=== PATIENT | male | born 1940 | race Hispanic/Latino ===

== ENCOUNTER 2018-10-16 18:53 | Emergency (ER) | payer MEDICARE ==
[~2018-10-16] VITALS: Ht 172.7 cm; Wt 78.0 kg
[2018-10-16] MEDS ORDERED: DEXAMETHASONE 10MG/ML PF INJ ONE (19:27)
[2018-10-16] MEDS ORDERED: DEXAMETHASONE SOD PHOS 10 MG/1 ML VIAL IM ONE (19:30)
[2018-10-16] MEDS ORDERED: FAMOTIDINE 20 MG TAB PO NR (19:30)
[2018-10-16] MEDS ORDERED: DIPHENHYDRAMINE HCL INJ 50 MG/ML VIAL IM ONE (19:30)
== END 2018-10-16 19:45 | disposition home or self-care (01) ==
LOC: FSED 18:53
DX: R21 Rash and other nonspecific skin eruption (principal); I10 Essential (primary) hypertension
CPT/HCPCS: 99283; J1100; J1200

== ENCOUNTER 2021-09-12 09:48 | Observation (INO) | payer MEDICARE ==
[~2021-09-12] VITALS: Ht 172.7 cm; Wt 78.0 kg
[2021-09-12] MEDS ORDERED: ACETAMINOPHEN 325 MG TAB PO STA (09:56)
[2021-09-12] MEDS ORDERED: SODIUM CHLORIDE 0.9% 1000ML 1,000 ML IV STA ×2 (10:25→11:34)
[2021-09-12 10:32] LABS: BASOPHILS % 0.3 % (0.0-1.0); HEMATOCRIT 49.2 % (38.2-49.6); HEMOGLOBIN 16.5 g/dL (14.0-18.0); LYMPHOCYTES # (AUTO) 1.1 (1.0-3.2); LYMPHOCYTES % 17.8 % (18.0-39.1); MEAN CORPUSCULAR HEMOGLOBIN 31.1 pg (28-32); MEAN CORPUSCULAR HGB CONC 33.5 g/dL (31-35); MEAN CORPUSCULAR VOLUME 92.7 fL (81-99); MONOCYTES # (AUTO) 0.8 (0.2-0.8); MONOCYTES % 13.4 % (4.4-11.3); NEUTROPHILS % 67.8 % (38.7-80.0); PLATELET COUNT 195 x10e3/uL (140-360); RED BLOOD COUNT 5.31 x10e6/uL (4.3-5.7); RED CELL DISTRIBUTION WIDTH 11.8 % (11.7-14.4)
[2021-09-12 10:56] LABS: B-TYPE NATRIURETIC PEPTIDE2 40.5 pg/mL (0-100)
[2021-09-12 10:57] LABS: INR 0.99; PARTIAL THROMBOPLASTIN TIME 27.1 seconds (23.8-35.5)
[2021-09-12] MEDS ORDERED: Vancomycin IV 1 GM in SODIUM CHLORIDE 0.9% 250ML 250 ML IV ONE (11:00)
[2021-09-12 11:07] LABS: ALANINE AMINOTRANSFERASE 50 IU/L (0-55); ALBUMIN 3.7 g/dL (3.5-5.0); ALBUMIN/GLOBULIN RATIO 1.1 (0.8-2.0); ALKALINE PHOSPHATASE 64 IU/L (40-150); ANION GAP 13.5 mmol/L (8-16); BLOOD UREA NITROGEN 13 mg/dL (7-26); BUN/CREATININE RATIO 10 (6-25); CALCIUM 8.4 mg/dL (8.4-10.2); CARBON DIOXIDE 23 mmol/L (22-29); CHLORIDE 104 mmol/L (98-107); CREATINE KINASE 40 IU/L (30-200); CREATININE, SERUM 1.29 mg/dL (0.72-1.25); EST GLOMERULAR FILTRATION RATE 53 ML/MIN (60-); GLUCOSE 169 mg/dL (74-118); POTASSIUM 3.5 mmol/L (3.5-5.1); SODIUM 137 mmol/L (136-145)
[2021-09-12 11:25] LABS: CLARITY,URINE CLEAR (CLEAR); COLOR,URINE YELLOW (YELLOW); KETONES,URINE TRACE (NEGATIVE); LEUKOCYTE ESTERASE ,URINE NEGATIVE (NEGATIVE); NITRITE,URINE NEGATIVE (NEGATIVE); PROTEIN,URINE DIPSTICK TRACE (NEGATIVE); URINE UROBILINOGEN 1 mg/dL (0.2 - 1)
[2021-09-12 11:26] LABS: BACTERIA,URINE RARE /HPF; EPITHELIAL CELLS,URINE FEW /LPF; RBC,URINE 0-5 /HPF (0-5); WBC,URINE (MAN) 0-5 /HPF (0-5)
[2021-09-12] MEDS ORDERED: IOPAMIDOL 370 MG/ML 100 ML INFUS..BTL INJ ONE (12:13)
[2021-09-12] MEDS ORDERED: ACETAMINOPHEN 325 MG TAB PO PRN (14:15)
[2021-09-12] MEDS ORDERED: ONDANSETRON HCL INJ 2MG/ML 2ML 2 MG/ML VIAL IV PRN (14:15)
[2021-09-12] MEDS ORDERED: CLONIDINE HCL 0.1 MG TAB PO PRN (14:15)
[2021-09-12] MEDS: SODIUM CHLORIDE 0.9% 1000ML 1,000 ML IV SCH ×3 (14:21→23:05)
[2021-09-12] MEDS ORDERED: ALBUTEROL SULFATE HFA 8GM INHALATION AEROSOL INH PRN (15:15)
[2021-09-12] MEDS ORDERED: ENOXAPARIN SOD INJ 40 MG/0.4 ML SYR SC SCH (19:45)
[2021-09-12 23:30] VITALS: BP 133/85
[2021-09-12 23:40] VITALS: BP 133/85
[2021-09-13] MEDS ORDERED: GLIPIZIDE5 MG PO (00:12)
[2021-09-13] MEDS ORDERED: AMLODIPINE BESYL5 MG PO (00:12)
[2021-09-13 04:00] VITALS: BP 140/81
[2021-09-13 05:25] LABS: BASOPHILS % 0.2 % (0.0-1.0); EOSINOPHILS % 0.5 % (0.0-6.0); HEMATOCRIT 44.5 % (38.2-49.6); HEMOGLOBIN 15.1 g/dL (14.0-18.0); LYMPHOCYTES # (AUTO) 1.3 (1.0-3.2); MEAN CORPUSCULAR HEMOGLOBIN 30.9 pg (28-32); MEAN CORPUSCULAR HGB CONC 33.9 g/dL (31-35); MEAN CORPUSCULAR VOLUME 91.2 fL (81-99); MONOCYTES # (AUTO) 0.6 (0.2-0.8); MONOCYTES % 14.4 % (4.4-11.3); NEUTROPHILS # (AUTO) 2.1 (2.1-6.9); NEUTROPHILS % 52.4 % (38.7-80.0); PLATELET COUNT 159 x10e3/uL (140-360); RED BLOOD COUNT 4.88 x10e6/uL (4.3-5.7); RED CELL DISTRIBUTION WIDTH 11.9 % (11.7-14.4)
[2021-09-13 05:45] LABS: ANION GAP 11.3 mmol/L (8-16); CREATININE, SERUM 0.87 mg/dL (0.72-1.25); POTASSIUM 3.3 mmol/L (3.5-5.1)
[2021-09-13] MEDS: SODIUM CHLORIDE 0.9% 1000ML 1,000 ML IV SCH ×2 (06:30→14:45)
[2021-09-13 08:48] VITALS: BP 149/84
[2021-09-13 09:21] VITALS: BP 149/84
[2021-09-13 12:28] VITALS: BP 140/91
[2021-09-13] MEDS ORDERED: LACTOBACILLUS ACIDOPHILUS CAPSULE PO SCH ×2 (12:30→17:00)
[2021-09-13] MEDS ORDERED: POTASSIUM CHLORIDE 20 MEQ TAB CR PO ONE (13:00)
[2021-09-13] MEDS ORDERED: ONDANSETRON HCL 4 MG ORAL DISINTEGRATING TAB PO PRN (14:30)
[2021-09-13 16:17] VITALS: BP 139/81
== END 2021-09-13 16:40 | disposition home or self-care (01) ==
LOC: ER 10:01 → ERHOLD 12:48 → MED/SURG2 22:39
PROVIDERS: ADMIT Internal Medicine; ATTEND Internal Medicine
DX: U07.1 COVID-19 (principal); G93.41 Metabolic encephalopathy; E86.0 Dehydration; R53.1 Weakness; I10 Essential (primary) hypertension; E87.2 Acidosis; N28.9 Disorder of kidney and ureter, unspecified; N17.9 Acute kidney failure, unspecified
CPT/HCPCS: 36415; 70450; 71260; 74177; 80048; 80053; 81001; 82550; 82553; 83036; 83605; 83880; 84484; 85025; 85610; 85730; 87040; 87086; 93005; 94799; 99284; G0378; J0696; J1650; J2543; J3370; J7030; J7050; Q9967; U0002

== ENCOUNTER 2021-09-20 09:22 | Emergency (ER) | payer MEDICARE ==
[~2021-09-20] VITALS: Ht 172.7 cm; Wt 78.0 kg
[~2021-09-20 09:22] MED LIST: AMLODIPINE BESYL5 MG PO; GLIPIZIDE5 MG PO
[2021-09-20 09:52] LABS: BASOPHILS % 0.2 % (0.0-1.0); EOSINOPHILS # (AUTO) 0.1 (0.0-0.4); EOSINOPHILS % 2.1 % (0.0-6.0); HEMATOCRIT 48.6 % (38.2-49.6); HEMOGLOBIN 16.7 g/dL (14.0-18.0); LYMPHOCYTES # (AUTO) 1.9 (1.0-3.2); MEAN CORPUSCULAR HEMOGLOBIN 31.1 pg (28-32); MEAN CORPUSCULAR HGB CONC 34.4 g/dL (31-35); MEAN CORPUSCULAR VOLUME 90.5 fL (81-99); MONOCYTES # (AUTO) 0.6 (0.2-0.8); MONOCYTES % 8.8 % (4.4-11.3); NEUTROPHILS # (AUTO) 3.7 (2.1-6.9); NEUTROPHILS % 58.3 % (38.7-80.0); PLATELET COUNT 277 x10e3/uL (140-360); RED BLOOD COUNT 5.37 x10e6/uL (4.3-5.7); RED CELL DISTRIBUTION WIDTH 11.7 % (11.7-14.4)
[2021-09-20 10:07] LABS: CLARITY,URINE CLEAR (CLEAR); COLOR,URINE YELLOW (YELLOW); KETONES,URINE NEGATIVE (NEGATIVE); LEUKOCYTE ESTERASE ,URINE NEGATIVE (NEGATIVE); NITRITE,URINE NEGATIVE (NEGATIVE); PROTEIN,URINE DIPSTICK NEGATIVE (NEGATIVE)
[2021-09-20 10:08] LABS: BACTERIA,URINE FEW /HPF; EPITHELIAL CELLS,URINE FEW /LPF; URINE UROBILINOGEN 0.2 mg/dL (0.2 - 1); WBC,URINE (MAN) 0-5 /HPF (0-5)
[2021-09-20 10:17] LABS: ALBUMIN 3.6 g/dL (3.5-5.0); ANION GAP 12.9 mmol/L (8-16); CALCIUM 8.6 mg/dL (8.4-10.2); CREATININE, SERUM 1.12 mg/dL (0.72-1.25); POTASSIUM 3.9 mmol/L (3.5-5.1)
[2021-09-20 10:27] LABS: INR 0.97; PARTIAL THROMBOPLASTIN TIME 27.1 seconds (23.8-35.5); PROTHROMBIN TIME 13.8 seconds (11.9-14.5)
== END 2021-09-20 11:01 | disposition home or self-care (01) ==
LOC: ER 09:42
DX: H53.9 Unspecified visual disturbance (principal); I10 Essential (primary) hypertension; H91.93 Unspecified hearing loss, bilateral; Z86.16 Personal history of COVID-19
CPT/HCPCS: 36415; 70450; 71045; 80053; 81001; 84484; 85025; 85610; 85730; 99284; U0002

== ENCOUNTER 2024-06-10 13:28 | Emergency (ER) | payer MEDICARE ==
[~2024-06-10] VITALS: Ht 170.2 cm; Wt 80.7 kg
[2024-06-10 13:40] VITALS: TEMP 98.1
[2024-06-10] MEDS: LACTATED RINGER'S 500 ML IV ONE (14:06)
[2024-06-10 14:13] LABS: BASOPHILS % 0.3 % (0.0-1.0); EOSINOPHILS # (AUTO) 0.1 (0.0-0.4); EOSINOPHILS % 1.3 % (0.0-6.0); HEMATOCRIT 44.2 % (38.2-49.6); HEMOGLOBIN 15.8 g/dL (14.0-18.0); LYMPHOCYTES # (AUTO) 2.1 (1.0-3.2); LYMPHOCYTES % 26.6 % (18.0-39.1); MEAN CORPUSCULAR HEMOGLOBIN 30.6 pg (28-32); MEAN CORPUSCULAR HGB CONC 35.7 g/dL (31-35); MEAN CORPUSCULAR VOLUME 85.7 fL (81-99); MONOCYTES % 12.6 % (4.4-11.3); NEUTROPHILS # (AUTO) 4.5 (2.1-6.9); NEUTROPHILS % 58.7 % (38.7-80.0); PLATELET COUNT 210 x10e3/uL (140-360); RED BLOOD COUNT 5.16 x10e6/uL (4.3-5.7); RED CELL DISTRIBUTION WIDTH 11.8 % (11.7-14.4)
[2024-06-10 14:45] LABS: ANION GAP 17.5 mmol/L (8-16); CALCIUM 9.3 mg/dL (8.4-10.2); CREATININE, SERUM 1.07 mg/dL (0.72-1.25); POTASSIUM 3.5 mmol/L (3.5-5.1)
[2024-06-10 15:00] VITALS: PULSE 95; RESP 20; O2SAT 93
== END 2024-06-10 15:56 | disposition home or self-care (01) ==
LOC: ER 13:43
DX: R53.1 Weakness (principal); E11.65 Type 2 diabetes mellitus with hyperglycemia; I10 Essential (primary) hypertension; H90.3 Sensorineural hearing loss, bilateral
CPT/HCPCS: 36415; 80048; 85025; 99283; J7120

== ENCOUNTER 2024-06-29 18:38 | Observation (INO) | payer MEDICARE ==
[~2024-06-29] VITALS: Ht 167.6 cm; Wt 82.6 kg
[2024-06-29 19:34] VITALS: PULSE 104; RESP 18; TEMP 98
[2024-06-29] MEDS ORDERED: SODIUM CHLORIDE FLUSH 10 ML SYR INJ PRN (20:30)
[2024-06-29] MEDS: SODIUM CHLORIDE 0.9% 1000ML 1,000 ML IV SCH (20:30)
[2024-06-29 22:05] VITALS: BP 131/91; PULSE 97; RESP 18; TEMP 99; O2SAT 97
[2024-06-30] MEDS ORDERED: POTASSIUM CHLORIDE 20 MEQ TAB CR PO PRN (00:30)
[2024-06-30] MEDS ORDERED: ACETAMINOPHEN 325 MG TAB PO PRN (00:30)
[2024-06-30] MEDS ORDERED: ALBUTEROL/IPRATROPIUM 3 ML NEB NEB PRN (00:30)
[2024-06-30] MEDS ORDERED: DOCUSATE SODIUM 100 MG CAP PO PRN (00:30)
[2024-06-30] MEDS ORDERED: ONDANSETRON HCL INJ 2MG/ML 2ML 2 MG/ML VIAL IV PRN (00:30)
[2024-06-30] MEDS ORDERED: LIDOCAINE 4% PATCH TP PRN (00:30)
[2024-06-30] MEDS ORDERED: MELATONIN 5 MG TABLET PO PRN (00:30)
[2024-06-30] MEDS ORDERED: SIMETHICONE 80 MG CHEW PO PRN (00:30)
[2024-06-30] MEDS ORDERED: DIPHENHYDRAMINE HCL 25 MG CAP PO PRN (00:30)
[2024-06-30] MEDS ORDERED: BENZONATATE 100 MG CAP PO PRN (00:30)
[2024-06-30] MEDS ORDERED: DEXTROSE 50% SYRINGE 50 ML IV PRN ×2 (00:30)
[2024-06-30] MEDS ORDERED: METFORMIN HCL500 MG PO (01:00)
[2024-06-30] MEDS ORDERED: FLOMAX0.4 MG PO (01:00)
[2024-06-30] MEDS ORDERED: HYDROCHLOROTHIA25 MG PO (01:00)
[2024-06-30] MEDS ORDERED: ASPIRIN81 MG PO (01:00)
[2024-06-30 05:08] VITALS: BP 118/88; PULSE 91; RESP 18; TEMP 97.9; O2SAT 95
[2024-06-30 05:37] LABS: ANION GAP 14.4 mmol/L (8-16); CALCIUM 8.4 mg/dL (8.4-10.2); CHOL/HDL RATIO 5.2 (3.9-4.7); CREATININE, SERUM 0.89 mg/dL (0.72-1.25); MAGNESIUM 1.7 MG/DL (1.3-2.1)
[2024-06-30 05:45] LABS: POTASSIUM 3.4 mmol/L (3.5-5.1)
[2024-06-30 05:47] LABS: TROPONIN I 0.077 ng/mL (0-0.300)
[2024-06-30 06:00] LABS: THYROID STIMULATING HORMONE 2.139 uIU/mL (0.350-4.940)
[2024-06-30 07:30] VITALS: BP 118/88; PULSE 91; RESP 18; TEMP 97.9; O2SAT 95
[2024-06-30 07:49] LABS: BASOPHILS % 0.6 % (0.0-1.0); EOSINOPHILS # (AUTO) 0.1 (0.0-0.4); EOSINOPHILS % 1.3 % (0.0-6.0); HEMATOCRIT 43.2 % (38.2-49.6); HEMOGLOBIN 15.1 g/dL (14.0-18.0); LYMPHOCYTES % 21.1 % (18.0-39.1); MEAN CORPUSCULAR HEMOGLOBIN 30.8 pg (28-32); MEAN CORPUSCULAR VOLUME 88.2 fL (81-99); MONOCYTES # (AUTO) 0.7 (0.2-0.8); MONOCYTES % 14.7 % (4.4-11.3); NEUTROPHILS # (AUTO) 2.9 (2.1-6.9); NEUTROPHILS % 61.7 % (38.7-80.0); PLATELET COUNT 190 x10e3/uL (140-360); RED CELL DISTRIBUTION WIDTH 11.9 % (11.7-14.4)
[2024-06-30 07:55] VITALS: BP 108/82; PULSE 89; RESP 16; TEMP 98.5; O2SAT 97
[2024-06-30 08:00] VITALS: BP 108/82; PULSE 89; RESP 16; TEMP 98.5; O2SAT 97
[2024-06-30] MEDS: PANTOPRAZOLE SOD 40 MG TABEC PO SCH (08:06)
[2024-06-30] MEDS: INSULIN LISPRO 100 UNIT/1 ML 3ML VIAL SQ SCH (08:06)
[2024-06-30 12:00] VITALS: BP 148/99; PULSE 89; RESP 16; TEMP 97.8; O2SAT 98
[2024-06-30 16:00] VITALS: BP 146/97; PULSE 97; RESP 16; TEMP 99.1; O2SAT 100
[2024-06-30 16:27] LABS: TROPONIN I 0.081 ng/mL (0-0.300)
[2024-06-30] MEDS: ENOXAPARIN SOD INJ 40 MG/0.4 ML SYR SC SCH (17:04)
[2024-06-30] MEDS ORDERED: AMLODIPINE BESYLATE 5 MG TAB PO SCH (21:00)
== END 2024-06-30 18:43 | disposition short-term general hospital (02) ==
LOC: FSED 18:46 → ERHOLD 20:24 → MED/SURG 22:02
PROVIDERS: ADMIT Internal Medicine; ATTEND Internal Medicine
DX: N17.9 Acute kidney failure, unspecified (principal); E86.0 Dehydration; R26.2 Difficulty in walking, not elsewhere classified; R53.1 Weakness
CPT/HCPCS: 36415 ×2; 70450; 71046; 80048; 80053; 80061; 81003; 82550; 82948 ×2; 83036; 83735; 83880; 84443; 84484 ×2; 85025 ×2; 93005; 99284; G0378 ×2; J1650; J7030 ×2; S0164; J2470